=== PATIENT | female | born 1980 | race Caucasian/White ===

== ENCOUNTER 2018-02-04 20:47 | Emergency (ER) | payer OTHER ==
--- NOTE | 2018-02-04 20:54 | PDOC ---
History of Present Illness - General History Source: Patient, Family Exam Limitations: No Limitations - History of Present Illness Initial Comments: 02/04/18 21:26 The patient is a 37 year old female presenting with her family, with a significant past medical history of hypothyrodism, who presents to the ED complaining of left knee pain. She reports that 4 weeks ago she twisted her left knee walking down the stairs. She did not follow up with a doctor and left it alone. Today she twisted the same knee. She describes her pain as an achy sensation, pain exacerbated with walking and relieved with resting. She denies any kind fall leading up to the injury. She denies taking any kind of medications for her pain. She notes that recently moved from [facility] to the [facility] 4 months ago. The patient denies chest pain, shortness of breath, headache and dizziness. Allergies: None Past surgical history: Dental surgery, Social History: No alcohol, tobacco or drug use reported <Shai Grey - Last Filed: 02/04/18 21:25> <Glo Alvarez - Last Filed: 02/05/18 02:24> - General Chief Complaint: Injury Stated Complaint: TWISTED LEFT KNEE 3 WEEKS AGO,RE-INJURED TODAY Time Seen by Provider: 02/04/18 20:49 Past History <Shai Grey - Last Filed: 02/04/18 21:25> <Glo Alvarez - Last Filed: 02/05/18 02:24> - Past Medical History Allergies/Adverse Reactions: Allergies Allergy/AdvReac Type Severity Reaction Status Date / Time No Known Allergies Allergy Verified 02/04/18 20:49 Home Medications: Ambulatory Orders Diclofenac Sodium [Voltaren -] 75 mg PO BID PRN #14 tablet. 02/04/18 Review of Systems - Review of Systems Able to Perform ROS?: Yes Comments:: 02/04/18 21:26 GENERAL/CONSTITUTIONAL: No fever or chills. No weakness. HEAD, EYES, EARS, NOSE AND THROAT: No change in vision. No ear pain or discharge. No sore throat. GASTROINTESTINAL: No nausea, vomiting, diarrhea or constipation. GENITOURINARY: No dysuria, frequency, or change in urination. CARDIOVASCULAR: No chest pain or shortness of breath. RESPIRATORY: No cough, wheezing, or hemoptysis. MUSCULOSKELETAL: (+) Left knee pain. No joint or muscle swelling or pain. No neck or back pain. SKIN: No rash NEUROLOGIC: No headache, vertigo, loss of consciousness, or change in strength/ sensation. ENDOCRINE: No increased thirst. No abnormal weight change. HEMATOLOGIC/LYMPHATIC: No anemia, easy bleeding, or history of blood clots. ALLERGIC/IMMUNOLOGIC: No hives or skin allergy. <Shai Grey - Last Filed: 02/04/18 21:25> *Physical Exam - Vital Signs Last Vital Signs Temp Pulse Resp BP Pulse Ox 98.2 F 68 16 120/68 98 02/04/18 20:52 02/04/18 20:52 02/04/18 20:52 02/04/18 20:52 02/04/18 20:52 - Physical Exam Comments: 02/04/18 21:26 Constitutional: Awake, alert, oriented. No acute distress. Head: Normocephalic. Atraumatic Eyes: PERRL. EOMI. Conjunctivae are not pale. ENT: Mucous membranes are moist and intact. Posterior pharynx without exudates or erythema. Uvula midline. Neck: Supple. Full ROM. No lymphadenopathy. Cardiovascular: Regular rate. Regular rhythm. S1, S2 regular. Distal pulses are 2+ and symmetric. Pulmonary/Chest: No evidence of respiratory distress. Clear to auscultation bilaterally No wheezing, rales or rhonchi. Abdominal: Soft and non-distended. There is no tenderness. No rebound, guarding or rigidity. No organomegaly. No palpable masses. Good bowel sounds. Back: No CVA tenderness. Musculoskeletal: (+) Mild tenderness along medial and superior border of the left patella, mild crepitus on movement of the patella. No point tenderness, deformity or ligament instability. No edema. No cyanosis. No clubbing. Full range of motion in all extremities. No calf tenderness. Radial/pedal pulses are intact and 2+ bilaterally Skin: Skin is warm and dry. No petechiae. No purpura. Neurological: Alert and oriented to person, place, and time. Cranial nerves II -XII are grossly intact. Normal speech. Strength is grossly symmetric. No sensory deficits. Psychiatric: Good eye contact. Normal interaction, affect and behavior. <Shai Grey - Last Filed: 02/04/18 21:25> Moderate Sedation - Procedure Monitoring Vital Signs: Procedure Monitoring Vital Signs Temperature 98.2 F 02/04/18 20:52 Pulse Rate 68 02/04/18 20:52 Respiratory Rate 16 02/04/18 20:52 Blood Pressure 120/68 02/04/18 20:52 O2 Sat by Pulse Oximetry (%) 98 02/04/18 20:52 <Shai Grey - Last Filed: 02/04/18 21:25> Progress Note - Progress Note Progress Note: Documentation has been prepared under my direction and personally reviewed by me in its entirety. I attest that this documented accurately reflects all work, treatment, procedures and medical decision making performed by me. <Glo Alvarez - Last Filed: 02/05/18 02:24> Medical Decision Making - Medical Decision Making As noted above, this otherwise healthy 37-year-old woman, recently immigrated [place] this country and without medical follow-up currently, presents with left knee pain. Patient describes twisting mechanism as she was climbing downstairs ; there was no fall or other impact on the knee surface. She had similar but milder symptoms in the past that recovered with rest. No other injuries/ symptoms noted. Exam as noted. Of note, there is mild tenderness of the medial and superior portion of the patella but no deformity/edema/point tenderness. Exam and history most consistent with patellofemoral syndrome. Jesse wrap applied to the knee. Patient has not taken any medication for her pain and has no history of peptic ulcer disease/gastritis/renal issues. Therefore, a prescription for diclofenac 75 mg twice a day will be issued to her pharmacy. Referral information for follow-up to the [facility] [place] [facility] given to the patient. She shouldcall The office in the morning to arrange follow-up within the next few days <Glo Alvarez - Last Filed: 02/05/18 02:24> *DC/Admit/Observation/Transfer - Attestations Scribe Attestion: 02/04/18 21:27 Documentation prepared by Shai Grey, acting as medical staff services manager for Glo Alvarez MD <Shai Grey - Last Filed: 02/04/18 21:25> <Glo Alvarez - Last Filed: 02/05/18 02:24> Diagnosis at time of Disposition: Patellofemoral arthralgia of left knee - Discharge Dispostion Disposition: HOME Condition at time of disposition: Stable - Prescriptions Prescriptions: Diclofenac Sodium [Voltaren -] 75 mg PO BID PRN #14 tablet.dr JENSEN Reason: Pain - Referrals Referrals: Rios Rodriguez MD [Staff Physician] - Call tomorrow - Patient Instructions Printed Discharge Instructions: DI for Patellofemoral Pain Syndrome-Adult Additional Instructions: Jesse wrap during the day for the next week Diclofenac 75 mg up to twice a day as needed for pain; take with food followup with orthopedic group(Dr Rodriguez): call office tomorrow for followup within 1 week
[2018-02-04 20:58] VITALS: BP 120/68; PULSE 68; TEMP 98.2; BMI 27.8
== END 2018-02-04 21:27 | disposition home or self-care (01) ==
LOC: FER 20:47
DX: M25.562 Pain in left knee (principal)
CPT/HCPCS: 99281-25